=== PATIENT | male | born 2000 | race Caucasian/White ===

== ENCOUNTER 2019-07-13 13:13 | Emergency (ER) | payer BC ==
[~2019-07-13] VITALS: Ht 180.3 cm; Wt 65.8 kg
[2019-07-13 13:23] VITALS: BP 117/75
--- NOTE | 2019-07-13 13:52 | NUR ---
ED Nurse Note: Patient presents to ER due to left ankle pain, swelling since 1300 yesterday; Patient ambulated to the room with crutches; patient hx of left ankle fracture. Patient states she jumped off from hiking trail and twisted left ankle when he landed. Able to wiggle left toes, able to identify which toe is being touched and + left dorsal pedis pulse noted. Applied ice pack. No facial griamcing or guarding noted.
[2019-07-13] MEDS ORDERED: Ketorolac 30mg Inj IM ONE (14:00)
--- NOTE | 2019-07-13 14:01 | NUR ---
ED Nurse Note: Toradol IM injection given to left vastus lateralis. Patient tolerated IM injection without problem.
--- NOTE | 2019-07-13 14:19 | Diagnostic Imaging Report ---
Indication: left ankle pain Comparison: None Findings: 3 views of the left ankle obtained. There is soft tissue swelling about the ankle. No acute fracture, malalignment, periostitis, or osteochondral defects are identified. Impression: Soft tissue swelling
--- NOTE | 2019-07-13 14:26 | Emergency Room Report ---
History of Present Illness General Chief Complaint: Lower Extremity Injury Source: Patient (Galen Stover) Present Illness HPI 19-year-old male with no significant past medical history currently visiting from [place] here complaining of 1 day of pain and swelling in his left ankle after a fall and injury. Patient is ambulating to the ED using crutches reporting that he purchase them himself. Patient denies any pain radiation, calf tenderness, tingling and numbness. Has taken ibuprofen with some relief for his pain. Moderate swelling is noted on the left lateral malleolus. No bony tenderness palpated. No motor and sensory deficits noted. Denies all other injuries, head injury, dizziness, loss of consciousness. Denies chest pain, shortness of breath, palpitation, no other associated symptoms. Patient reports that he has a flight back to [place] next Tuesday. (Galen Stover) Allergies: Coded Allergies: No Known Allergies (Unverified , 07/13/19) Patient History Past Medical History: see triage record Past Surgical History: unable to obtain Pertinent Family History: none Immunizations: UTD Reviewed Nursing Documentation: PMH: Agreed; PSxH: Agreed (Galen Stover) Nursing Documentation-PMH Past Medical History: No Stated History (Galen Stover) Review of Systems All Other Systems: negative except mentioned in HPI (Galen Stover) Physical Exam Vital Signs Date Time Temp Pulse Resp B/P (MAP) Pulse Ox O2 Delivery O2 Flow Rate FiO2 07/13/19 13:23 98.4 88 18 117/75 (89) 98 Room Air Sp02 EP Interpretation: reviewed, normal General Appearance: no apparent distress, alert, GCS 15, non-toxic Head: normocephalic, atraumatic Eyes: bilateral eye normal inspection, bilateral eye PERRL ENT: hearing grossly normal, normal pharynx, no angioedema, normal voice Neck: full range of motion, supple, no bony tend, supple/symm/no masses Respiratory: chest non-tender, lungs clear, normal breath sounds, no rhonchi, no respiratory distress, no retraction, no wheezing, speaking full sentences Cardiovascular #1: regular rate, rhythm, no edema, no murmur, normal capillary refill Cardiovascular #2: 2+ dorsalis pedis (R), 2+ dorsalis pedis (L) Gastrointestinal: normal bowel sounds, non tender, soft, non-distended, no guarding, no rebound Genitourinary: normal inspection, no CVA tenderness Musculoskeletal: back normal, normal range of motion, non-tender, no calf tenderness, swelling - Left ankle lateral malleolus without any bony tenderness Neurologic: alert, oriented x3, responsive, motor strength/tone normal, sensory intact, speech normal Psychiatric: judgement/insight normal, memory normal, mood/affect normal, no suicidal/homicidal ideation Skin: no rash, other - No ecchymosis noted Lymphatic: no adenopathy (Galen Stover) Procedures Splinting Splinting : Consent: Verbal Location: Left ankle Pre-Made Type: aircast Pre-Proc Neuro Vasc Exam: normal Post-Proc Neuro Vasc Exam: normal Patient Tolerated: Well Complications: None (Galen Stover) Medical Decision Making PA Attestation All diagnoses and treatment plans were reviewed and discussed with my supervising physician Dr. Ryan (Galen Stover) Diagnostic Impression: Primary Impression: Ankle sprain ER Course 19-year-old male with no significant past medical history currently visiting from [place] here complaining of 1 day of pain and swelling in his left ankle after a fall and injury. Patient is ambulating to the ED using crutches reporting that he purchase them himself. Patient denies any pain radiation, calf tenderness, tingling and numbness. Has taken ibuprofen with some relief for his pain. Moderate swelling is noted on the left lateral malleolus. No bony tenderness palpated. No motor and sensory deficits noted. Denies all other injuries, head injury, dizziness, loss of consciousness. Denies chest pain, shortness of breath, palpitation, no other associated symptoms. Patient reports that he has a flight back to [place] next Tuesday. Ddx considered but are not limited to: ankle sprain, ankle strain, ankle fracture, ankle contusion Vital signs: are WNL, pt. is afebrile H&PE are most consistent with: left ankle sprain ORDERS: ankle X-ray, ibuprofen 800 ED INTERVENTIONS: Aircast applied to left ankle DISCHARGE: At this time pt. is stable for d/c to home. Will provide printed patient care instructions, and any necessary prescriptions. Care plan and follow up instructions have been discussed with the patient prior to discharge. Patient to continue using crutches as well as keeping the Aircast on event on the plane. If calf tenderness worsening symptoms return to the emergency room. Advised the patient to elevate his leg especially when sitting in the airplane as his blood is going to be 4 hours. (Galen Stover) Other X-Ray Diagnostic Results Other X-Ray Diagnostic Results : X-Ray ordered: Left ankle # of Views/Limited Vs Complete: 3 View Indication: Swelling EP Interpretation: Yes PA Xray: Interpretation reviewed, by supervising MD, and agrees with findings. Interpretation: no dislocation, no fractures Impression: No acute disease Electronically Signed by: Galen Alexander PA-C (Galen Stover) Other X-Ray Diagnostic Results : Electronically Signed by: Ran Alcantara documentation of Xray reviewed by me and is accurate, Jose Ryan MD (Jose Ryan MD) Last Vital Signs Date Time Temp Pulse Resp B/P (MAP) Pulse Ox O2 Delivery O2 Flow Rate FiO2 07/13/19 13:23 98.4 88 18 117/75 (89) 98 Room Air (Galen Stover) Disposition: HOME, SELF-CARE Condition: Stable Scripts Ibuprofen (Ibu) 800 Mg Tablet 800 MG PO TID, #30 TAB Prov: Galen Stover 07/13/19 Referrals: NON PHYSICIAN (PCP) Patient Instructions: Ankle Sprain Additional Instructions: Take medication as directed follow-up with primary care provider keep area elevated if worsening symptoms return to the emergency room Galen Stover Jul 13, 2019 14:26 Jose Ryan MD Jul 14, 2019 04:49
[2019-07-13] MEDS ORDERED: IBU800 MG PO (14:27)
--- NOTE | 2019-07-13 14:49 | NUR ---
ED Nurse Note: Patient not found in room. Patient left without discharge paperwork. D/C instruction was given to patient by Cruz Aaron Patient ambulated here with his crutches.
== END 2019-07-13 14:51 | disposition home or self-care (01) ==
LOC: EMR 13:55
DX: S93.402A Sprain of unspecified ligament of left ankle, initial encounter (principal); W19.XXXA Unspecified fall, initial encounter; Y92.9 Unspecified place or not applicable
CPT/HCPCS: 29515; 73610; 96372; 99283; J1885